=== PATIENT | female | born 1950 | race Caucasian/White ===

== ENCOUNTER 2020-03-20 11:29 | Inpatient (IN) | payer MEDICARE, MEDICAID ==
[~2020-03-20] VITALS: Ht 162.6 cm; Wt 81.8 kg
[2020-03-20] MEDS ORDERED: NS 1,000 ML IV SCH (11:43)
[2020-03-20 12:01] LABS: BASO % 0.3 % (0.0-1.0); EOS % 0.4 % (0.0-3.0); HEMATOCRIT 41.9 % (36.0-47.0); HEMOGLOBIN 13.7 g/dl (12.0-15.5); LYMPH # 0.7 10^3/uL (1.5-5.0); LYMPH % 8.5 % (24.0-44.0); MEAN CORPUSCULAR HEMOGLOBIN 28.3 pg (27.0-33.0); MEAN CORPUSCULAR HGB CONC 32.7 g/dl (32.0-36.5); MEAN CORPUSCULAR VOLUME 86.6 fl (80.0-96.0); MONO # 0.6 10^3/uL (0.0-0.8); MONO % 7.2 % (0.0-5.0); NEUTROPHILS # 6.4 10^3/uL (1.5-8.5); NEUTROPHILS % 82.8 % (36.0-66.0); PLATELET COUNT, AUTOMATED 237 10^3/uL (150-450); RED BLOOD COUNT 4.84 10^6/uL (4.00-5.40); WHITE BLOOD COUNT 7.7 10^3/uL (4.0-10.0)
[2020-03-20 12:23] LABS: ALBUMIN 2.8 GM/DL (3.2-5.2); BILIRUBIN,DIRECT 0.3 MG/DL (0.0-0.2); BILIRUBIN,TOTAL 0.8 MG/DL (0.2-1.0); TOTAL PROTEIN 6.3 GM/DL (6.4-8.2)
--- NOTE | 2020-03-20 13:31 | REP ---
REASON: Right upper quadrant pain. COMPARISON EXAM: None. The examination is markedly limited. The patient was unable to sustain respirations throughout the exam. Seen in the region of the gallbladder fossa, there is a large echogenic focus, which casts an acoustic shadow which suggests cholelithiasis; however, the gallbladder wall is not well imaged and the reason for this is unknown. There might be pericholecystic edema. I can not rule out a liver mass adjacent to the gallbladder fossa obscuring the gallbladder. Limited evaluation of the liver shows a markedly heterogenous echopattern with a nodular-appearing surface. There is no gross intrahepatic or extrahepatic ductal dilation. The common bile duct measures 7 mm. Seen in the imaged portion of the right kidney a 2.3 x 2.5 x 1.8 cm sized anechoic structure is noted which posterior wall enhancement and increased through transmission. This is consistent with a simple cyst. The pancreas was not imaged due to the exam limitations, as described above. There is no free fluid in the abdomen. IMPRESSION: 1. The examination is markedly limited. There is evidence of cholelithiasis and other gallbladder or potentially paragallbladder abnormality. Contrast-enhanced CT examination of the abdomen and pelvis is recommended. 2. Other findings as described above. Electronically Signed by Nicholas Delatorre DO 03/20/2020 01:39 P
[2020-03-20] MEDS ORDERED: ISOVUE-370 76% 100ML VIAL As Ordered ONE (13:57)
[2020-03-20] MEDS ORDERED: ACETAMINOPHEN TAB 650MG DOSE (2X325MG) PO ONE (14:30)
[2020-03-20] MEDS ORDERED: MORPHINE 4 MG/ML 1ML VIAL/SYRINGE (J2270) IV PRN (15:15)
--- NOTE | 2020-03-20 15:30 | REP ---
CT ABDOMEN AND PELVIS WITH IV CONTRAST: TECHNIQUE: Axial contrast enhanced images from the lung bases to the pubic symphysis using 100 mL Isovue 370 intravenous contrast material with multiplanar reformations. Visualized lung bases demonstrate interstitial fibrosis. The liver demonstrates a heterogeneous low density ill-defined mass inferiorly in the right lobe measuring about 6 cm in diameter. Margins are not well defined. There are multiple surrounding subcentimeter nodules in the surrounding right lobe of the liver with multiple subcentimeter nodules extending more superiorly in the right lobe anterior segment. A few subcentimeter nodules are scattered in the left lobe. The gallbladder is moderately distended and contains a 3 cm stone. I suspect that the liver mass is compressing the cystic duct and blocking the cystic duct causing the gallbladder distention. The extrahepatic common bile duct does not appear to be dilated. Spleen is normal in size with no intrinsic abnormality. Adrenal glands and pancreas are unremarkable. The kidneys demonstrate no hydronephrosis. There is a right renal cyst measuring 2.7 cm in diameter. There is mild atherosclerotic calcification of the abdominal aorta without aneurysm. There is no adenopathy in the periaortic region but there is mild portal adenopathy with multiple mildly enlarged lymph nodes present. There is no free air or free fluid. There is a small hiatal hernia. There is sigmoid diverticulosis. There is no acute diverticulitis. Urinary bladder is mildly distended and grossly unremarkable. IMPRESSION: There appears to be a large mass in the inferior aspect of the right lobe of the liver, ill-defined with multiple surrounding subcentimeter nodules in the surrounding liver parenchyma. These extend superiorly in the anterior segment of the right lobe. A few other scattered subcentimeter nodules are seen in the left lobe. I suspect this represents neoplastic disease and possibly cholangiocarcinoma. Just inferior to the mass in the inferior aspect of the right lobe of the liver, the gallbladder demonstrates moderate distention with diffuse wall thickening and contains a 3 cm stone. I suspect the liver mass is obstructing the cystic duct. The extrahepatic common bile duct does not appear to be dilated. There is mild portal adenopathy. Electronically Signed by Patrick Martinez MD 03/20/2020 05:03 P
[2020-03-20] MEDS ORDERED: PROHANCE 279.3MG/ML 5ML VIAL As Ordered ONE (17:16)
[2020-03-20] MEDS ORDERED: PROHANCE 279.3MG/ML 15ML VIAL As Ordered ONE (17:16)
--- NOTE | 2020-03-20 17:19 | HPEPDOC ---
[facility] Medical History & Physical Date of Admission Mar 20, 2020 Date of Service: Mar 20, 2020 Attending Physician: Gail Lombardi MD History and Physical CHIEF COMPLAINT: Abdominal pain HISTORY OF PRESENT ILLNESS: Patient is a 69 y/o F with PMH of COPD who presented to [facility] with chief complaint of worsening abdominal pain over the past 3 days. As per patient, her RUQ pain is localized, intermittent, sharp and has been present for the past 1 year. Over the past 3 days; however, the pain has become severe, 8-10/10 on pain scale. No relieving factors. Worsened with movement. Associated symptoms include lack of energy, n/v, decreased appetite, 2 bouts of loose stools, nonbloody. Due to worsening pain she decided to come to ER. In the ER, pain was described as mod-severe. VS showed BP 119-162/57-72, 66, temp 98F, RR 18, 98% on RA. CT abd/pelvis showed large mass in the inferior aspect of the right lobe of the liver, ill-defined with multiple surrounding subcentimeter nodules in the surrounding liver parenchyma, with other scattered nodules in the right and left lobe. Findings suspicious of neoplastic disease and possibly cholangiocarcinoma. Just inferior to the mass in the inferior aspect of the right lobe of the liver, the gallbladder demonstrates moderate distention with diffuse wall thickening and contains a 3 cm stone- suspicious for compression by mass of the cystic duct but not obstruction. Dr. Nogueira, general surgeon, saw patient in ER and did not feel gallbladder was cause of pain but suspected mass as cause. No surgical intervention needed by him at this time. GI was notified of case and suggested MRI abd/pelvis. Results are currently pending. Patient was admitted for abdominal pain, liver masses r/o neoplastic process. REVIEW OF SYSTEMS: CONSTITUTIONAL: Denies unexplained weight gain or weight loss, fever, night sweats EYES: Denies eye drainage, eye pain, visual changes, dry/irritated eye EARS, NOSE, MOUTH, THROAT: Denies difficulty hearing, ringing in ears, mouth sores, loose teeth, sore throat, facial numbness or pain NECK: Denies swollen glands CARDIOVASCULAR: Denies irregular heartbeat, racing heart, chest pains, swelling of feet or legs, pain in legs with walking RESPIRATORY: Denies shortness of breath, night sweats, wheezing, sputum production, oxygen at home, coughing up blood, cough lasting > 1 month GASTROINTESTINAL: Denies constipation, bloody stool, heart burn : Denies burning with urination, impotence MUSCULOSKELETAL: Denies joint pain, muscle pain, leg swelling INTEGUMENTARY: Denies rash, itching, new skin lesion, change in existing skin lesion, hair loss or increase, breast changes. NEUROLOGICAL: Denies headaches, dizziness, difficulty walking, numbness or tingling PSYCHIATRIC: Denies depression, anxiety, recurrent bad thoughts, mood swings, hallucinations PAST MEDICAL HISTORY: 1. COPD 2. HTN 3. Tobacco use PAST SURGICAL HISTORY: 1. Total Hysterectomy 2. Cholecystectomy 3. Appendectomy FAMILY HISTORY: Father: Coronary artery disease. at 84 years old Mother: Colon cancer, stomach cancer. at 84 years old SOCIAL HISTORY: Smoker 1 pack per day for the past 44 years. She drinks alcohol 4-5 beers daily, last drink was 4 days ago. She does not have a primary care provider and sees no specialist. She lives with her boyfriend in the local area. She is a full code. ALLERGIES: Please see below. HOME MEDICATIONS: Please see below. PHYSICAL EXAMINATION: CONSTITUTIONAL: No acute distress, resting comfortably, AAO x 3 EYES: PERRLA, EOM intact HENT, MOUTH: Normocephalic, atraumatic, moist mucous membranes, NECK: SUPPLE, no JVD, no lymphadenopathy, no carotid bruit CV: Regular rate and rhythm, S1S2 normal, no murmurs/rubs/gallops RESPIRATORY: Clear to auscultation bilaterally, no rales/rhonchi/wheezes GI: tenderness in the RUQ of abdomen, BS positive in 4 quadrants, soft, nondistended, no rebound or guarding, no organomegaly : Deferred MUSCULOSKELETAL: Normal ROM. No cyanosis, clubbing, swelling, joint deformity, extremity edema INTEGUMENTARY: Intact, no rashes, no lesions, no erythema NEUROLOGIC: Cranial Nerves II-XII are intact, no focal deficits PSYCHIATRIC: Mood and affect are normal LABORATORY DATA: Please see below IMAGING: CT abd/pelvis: There appears to be a large mass in the inferior aspect of the right lobe of the liver, ill-defined with multiple surrounding subcentimeter nodules in the surrounding liver parenchyma. These extend superiorly in the anterior segment of the right lobe. A few other scattered subcentimeter nodules are seen in the left lobe. I suspect this represents neoplastic disease and possibly cholangiocarcinoma. Just inferior to the mass in the inferior aspect of the right lobe of the liver, the gallbladder demonstrates moderate distention with diffuse wall thickening and contains a 3 cm stone. I suspect the liver mass is obstructing the cystic duct. The extrahepatic common bile duct does not appear to be dilated. There is mild portal adenopathy. ASSESSMENT: 69 y/o F admitted under inpatient status for abdominal pain, liver masses r/o neoplastic process. PLAN: 1. Liver masses r/o neoplastic process (cholangiocarcinoma). Hx of daily alcohol use, smoker. Liver masses likely cause of abdominal pain per surgery, not distended gallbladder. F/u MRI with and without contrast. Dr. Gallo (GI) and Dr. Nogueira (general surgery) consulted or have seen patient. Depending on results of MRI will determine course of treatment. Pain control with PO and IV meds. 2. Gallbladder distention. Per Dr. Nogueira (surgery) who saw patient in ER, he thinks this is not surgical at this current time. Diffuse wall thickening and 3 cm stone present. Will continue to monitor for change in abdominal pain or wor sening labs. Suspecting liver mass is obstructing the cystic duct. 3. Elevated LFTs. likely due to obstructing liver mass above. Monitor with daily CMP. Avoid hepatotoxic meds. 4. Dehydration likely 2/2 to decreased PO intake, abdominal pain. Started on gentle IVF hydration,f/u daily labs. 5. COPD. No SOB on RA. Albuterol PRN. 6. Tobacco use. Nicotine patch. 7. Alcohol abuse. No signs of withdrawl, no use of alcohol for past 4-5 days. Thiamine, folate. 8. HTN hx. Stable. Not on home meds. 9. DVT px. Enoxaparin SC daily. DISPOSITION: Currently admitted under inpatient status. Plan is undetermined at this time. GI consulted and will f/u in the AM. Vital Signs Vital Signs Date Time Temp Pulse Resp B/P (MAP) Pulse Ox O2 Delivery O2 Flow Rate FiO2 03/20/20 17:00 58 119/57 (77) 95 Room Air 03/20/20 16:45 16 03/20/20 11:40 98.0 Laboratory Data Labs 24H Laboratory Tests 2 03/20/20 11:55: Immature Granulocyte % (Auto) 0.8, Neutrophils (%) (Auto) 82.8H, Lymphocytes (%) (Auto) 8.5L, Monocytes (%) (Auto) 7.2H, Eosinophils (%) (Auto) 0.4, Basophils (%) (Auto) 0.3, Neutrophils # (Auto) 6.4, Lymphocytes # (Auto) 0.7L, Monocytes # (Auto) 0.6, Eosinophils # (Auto) 0.0, Basophils # (Auto) 0.0, Nucleated Red Blood Cells % (auto) 0.0, Total Bilirubin 0.8, Direct Bilirubin 0.3H, Aspartate Amino Transf (AST/SGOT) 132H, Alanine Aminotransferase (ALT/SGPT) 137H, Alkaline Phosphatase 207H, Total Protein 6.3L, Albumin 2.8L, Albumin/Globulin Ratio 0.80L, Lipase 61L 03/20/20 11:58: POC Glucose (Misc Panel) 118H, POC Sodium (Misc Panel) 132L, POC Potassium (Misc Panel) 4.0, POC Chloride (Misc Panel) 94L, POC Total CO2 (Misc Panel) 28.0H, POC Blood Urea Nitrogen (Misc Panel 9, POC Ionized Calcium (Misc Panel) 4.6, POC Creatinine (Misc Panel) 0.6, POC Hematocrit (Misc Panel) 42.0 CBC/BMP Laboratory Tests 03/20/20 11:55 Home Medications No Active Prescriptions or Reported Meds Allergies Coded Allergies: No Known Allergies (Unverified , 03/20/20) A-FIB/CHADSVASC A-FIB History Current/History of A-Fib/PAF?: No Current PO Anticoag Therapy: No Age/Risk Factor Scoring CHADSVASC: CHADSVASC Response (Comments) Value Age Risk Factor Age 65-74 years old 1 Gender Risk Factor Female 1 Hx of CHF No 0 Hx of HTN Yes 1 Hx of Stroke/TIA/or VTE No 0 Hx of Diabetes No 0 Hx of Vascular Disease No 0 Total 3 Treatment Treatment ordered: Other Other anticoagulant ordered: enoxaparin Current Medications Current Medications Medications (Trade) Dose Ordered Sig/Eriberto Route PRN Reason Start Time Stop Time Status Last Admin Dose Admin Home Med (Med Rec Complete!) ASDIRECTED XX 03/20/20 17:00 03/20/20 16:53 DC Morphine Sulfate (Morphine Sulfate Inj) 4 mg Q30M PRN IV SEVERE PAIN (PS 8-10) 03/20/20 15:15 Sodium Chloride 1,000 ml @ 100 mls/hr Q10H IV 03/20/20 11:43 03/20/20 12:04 Gail Lombardi MD Mar 20, 2020 17:18
[2020-03-20] MEDS ORDERED: traMADol 50 MG TAB PO PRN (17:30)
[2020-03-20] MEDS ORDERED: ALBUTEROL 90 MCG/ACT 8GM HFA INHALER INH PRN (17:30)
--- NOTE | 2020-03-20 18:18 | CR ---
DATE OF CONSULTATION: 03/20/2020 REASON FOR CONSULTATION: Right upper quadrant pain with gallstones and liver mass. HISTORY OF PRESENT ILLNESS: The patient is a 69-year-old woman who presented to the emergency department complaining of right upper quadrant pain. She reports that she had undergone evaluation with a CT scan of the abdomen and pelvis at [facility] about a year ago and was diagnosed with appendicitis and then transferred to [facility] for surgery. She reports that she has had an occasional poking sensation in the right upper quadrant over the last months to perhaps as long as a year. She describes the sensation as if somebody poked her with a finger, which lasts only for a few seconds and then resolves. Over the last few months, she has noticed a little bit more discomfort that has been more persistent. Over the last 3-4 days, she has noticed significant increase in the pain in her right upper quadrant. She had some nausea and vomiting a few days ago. The pain became very severe today, and she presented to the emergency department for evaluation. The patient reports that her appetite has been off. She reports that when she had her CT scan for her appendix a year ago, she was told that she "had a bad gallbladder." She has not had any real serious symptoms until very recently. She does not know if she has lost any weight because she does not weigh herself at home. Because of the pain, she presented to the emergency department for evaluation. She had some laboratory studies done, which showed some mild to moderate elevations of her transaminases and a CT scan of the abdomen and pelvis showed a dilated gallbladder appearing to contain a large stone. There was a large irregular mass in the medial aspect of the right lobe of the liver extending fairly widely superiorly within the parenchyma of the liver. I am now asked to evaluate the patient regarding her pain and this liver mass. ALLERGIES: The patient reports no known drug allergies. MEDICATIONS: The patient reports no regular medications. SURGICAL HISTORY: The patient had undergone her laparoscopic appendectomy approximately a year ago at [facility]. Approximately 30 years ago she underwent a hysterectomy with bilateral salpingo-oophorectomy. MEDICAL HISTORY: The patient reports that she has been told she has the start of some chronic obstructive pulmonary disease (COPD). She denies any significant heart disease, endocrine problems or other major medical problems. SOCIAL HISTORY: The patient reports that she smokes approximately one pack of cigarettes per day. She reports that she will drink probably three to four beers per day. She has a significant other. FAMILY HISTORY: Noncontributory. REVIEW OF SYSTEMS: The patient denies any history of seizure, stroke or transient ischemic attack (TIA). She has no history of chronic severe headaches. She denies any cough, wheezing or sputum production. She has had no chest pain or palpitations. She denies any prior abdominal pain other than as described in the history of present illness. She has never had a colonoscopy but denies any history of chronic constipation, diarrhea or rectal bleeding. She denies dysuria or hematuria. She has no history of deep vein thrombosis (DVT) or pulmonary embolus. She has no significant bone or joint issues. PHYSICAL EXAM: Reveals a pleasant woman appearing her stated age of 69 years. Her most recent vital signs show a pulse of approximately 60, blood pressure of 128/58, and a room air saturation of 96%. Respiratory rate was 16. Skin is warm and dry. Sclerae are anicteric. Mucous membranes are moist. Neck is supple without mass, and she has no cervical bruit. Heart exam shows a regular rate and rhythm without murmur. The lungs are clear to auscultation bilaterally. The abdomen is borderline obese. She has several small scars consistent with her laparoscopy. She has active bowel sounds throughout the abdomen. The abdomen is soft. She does have a fullness in the mid right upper quadrant in the subcostal area with some mild direct tenderness in this area. There is no rebound tenderness. There is no sign of hernia in the abdomen. Extremities are without edema. She has palpable radial pulses bilaterally. Laboratory studies include a CBC which shows a white count of 8, hemoglobin 14, hematocrit 42, and a platelet count of 237,000. Differential count shows 83% neutrophils, 8% lymphocytes and 7% monocytes. Her chemistry profile includes a sodium of 132, potassium 4.0, chloride 94, CO2 of 28, BUN of 9, creatinine 0.6 and a glucose of 118. Her liver profile shows a total bilirubin of 0.8, direct of 0.3, AST 132, ALT 137, alkaline phosphatase of 207. Her total protein is slightly depressed at 6.3 with an albumin of 2.8. Lipase was 61. She had a gallbladder ultrasound obtained, which showed a large echogenic focus suggesting cholelithiasis in the gallbladder fossa. The gallbladder wall was not well imaged. The radiologist reported the study was markedly limited, but there was the potential of a liver mass and a CT scan was recommended. The CT scan was done, and this was interpreted by the radiologist as showing a large mass in the inferior aspect of the right lobe of the liver, which was somewhat ill-defined with multiple surrounding subcentimeter nodules in the surrounding liver parenchyma. The radiologist felt the appearance was suggestive of a neoplastic disease. Gallbladder was moderately distended and contained a 3 cm stone with some wall thickening. The extrahepatic common bile duct did not appear to be dilated. There were some lymph nodes noted in the khang region. We were able to obtain in the emergency department a copy of the report of the CT scan from [facility] from January of 2019. The report indicates that at that time she was noted to have cholelithiasis with a distended gallbladder, but there is no mention of a liver mass at that time. IMPRESSION: 1. Right upper quadrant pain; likely related to liver mass, likely malignant. 2. Cholelithiasis with distended gallbladder. 3. Probable COPD secondary to smoking. RECOMMENDATIONS: At this point, I do not believe the patient's pain is related to her cholelithiasis. I suspect that the liver mass is responsible. There may be some obstruction of her cystic duct, which could contribute certainly to the gallbladder distension and pain. At this point, there is no indication to proceed with any urgent surgery, and I suspect that in the end surgery will not be called for. I do think her liver abnormality is very suspicious for a malignancy. I discussed the patient with Dr. Edward and also spoke with Dr. Gallo of the gastroenterology service. We will order an MRI of the abdomen to evaluate the liver more fully. I have recommended to Dr. Edward that the patient be admitted by the hospitalist service for further management as this is likely to be a nonoperative situation. Dr. Gallo would be happy to see the patient, and he should be consulted when the patient is admitted. She may well require an endoscopic exam, possibly an endoscopic retrograde cholangiopancreatography (ERCP) to see if this would yield diagnostic tissue regarding her liver mass. It may be that a percutaneous biopsy of the liver will be called for. DAPHNE
[2020-03-20] MEDS: NS 1,000 ML IV SCH (18:20)
[2020-03-20 18:40] VITALS: BP 124/59
[2020-03-20] MEDS ORDERED: THIAMINE 100 MG TAB PO ONE (18:45)
[2020-03-20] MEDS ORDERED: NICOTINE 21MG/24HR 1 EA TRANSDERMAL TD ONE (18:45)
--- NOTE | 2020-03-20 19:10 | REPVR ---
PROCEDURE INFORMATION: Exam: MR Abdomen Without and With Contrast; Liver Exam date and time: 03/20/2020 5:41 PM Age: 69 years old Clinical indication: Abnormal findings; Abnormal radiologic finding of the abdomen; Patient HX: Abn CT possible liver mass; Additional info: Liver masses, abdominal pain TECHNIQUE: Imaging protocol: MR Abdomen with and without intravenous contrast. Exam focused on the liver. 3D rendering: MIP and/or 3D reconstructed images were created by the technologist. Contrast material: PROHANCE; Contrast volume: 16 ml; Contrast route: 22G; COMPARISON: GALLBLADDER US 03/20/2020 12:10 PM FINDINGS: Liver: There is a multinodular infiltrating mass involving the right lobe of the liver extending superiorly into the medial segment of the left lobe of the liver demonstrating abnormal T2 signal, restricted diffusion on both the B0 and B 1500 diffusion-weighted imaging and progressive heterogeneous enhancement with several nonenhancing tubular and cystic foci on post-gadolinium images. The mass is resulting and splaying of the right and left branches of the portal vein without portal vein invasion. Findings are consistent with a malignancy. Gallbladder and bile ducts: The gallbladder is grossly hydropic. There is cholelithiasis demonstrated. Also noted is abnormal thickening of the gallbladder wall involving the body and neck of the gallbladder. Findings worrisome for malignancy. Pancreas: Normal. Kidneys and ureters: Simple cyst in the right kidney measure up to 3 cm. No follow-up suggested. Intraperitoneal space: No free fluid. IMPRESSION: 1. The gallbladder is grossly hydropic. There is cholelithiasis demonstrated. Also noted is abnormal thickening of the gallbladder wall involving the body and neck of the gallbladder. See comments below. 2. Abnormal multinodular enhancing hepatic masses as described above. Differential diagnosis including the gallbladder findings is primary gallbladder carcinoma metastatic to the liver and biliary carcinoma with secondary involvement of the gallbladder. Image guided percutaneous biopsy suggested if clinically desired. 3. Simple cyst in the right kidney measure up to 3 cm. No follow-up suggested. COMMENTS: Consistent with the [employer]'s Incidental Findings Committee white paper (J Am Rona Radiol 2018): Any incidental cystic renal lesion classified in this report as too small to characterize or simple appearing is likely a benign cyst. No follow-up imaging is recommended for these lesions per consensus recommendations based on imaging criteria. Electronically signed by: Joao Thurman On 03/20/2020 19:10:32 PM
[2020-03-20 19:12] LABS: INR 1.21
[2020-03-20 19:13] LABS: PARTIAL THROMBOPLASTIN TIME 32.2 SECONDS (25.0-38.4)
[2020-03-20] MEDS ORDERED: DOCUSATE SODIUM 100 MG CAP PO SCH (21:00)
[2020-03-20 22:00] VITALS: BP 126/59
[2020-03-21] MEDS: NS 1,000 ML IV SCH ×2 (00:18→22:06)
[2020-03-21] MEDS: MORPHINE 2 MG/ML 1ML VIAL (J2270) IV PRN ×3 (00:19→12:51)
--- NOTE | 2020-03-21 03:22 | ECGEPIP ---
[facility] - ED Test Date: 2020-03-20 Pat Name: EDWIN MONDRAGON Department: Room: - Gender: Female Lapel Baster: rony : 1950 Requested By: Bita Zambrano Order Number: [id number] Reading MD: Maico Gutierrez Measurements Intervals Rebecca Rate: 64 P: 14 NE: 153 QRS: 4 QRSD: 94 T: 29 QT: 416 QTc: 430 Interpretive Statements SINUS RHYTHM Comparison tracing not on file Electronically Signed on 03-21-2020 3:22:19 EDT by Maico Gutierrez
[2020-03-21 06:00] VITALS: BP 143/71
[2020-03-21 06:50] LABS: BASO % 0.2 % (0.0-1.0); EOS % 0.6 % (0.0-3.0); HEMATOCRIT 37.3 % (36.0-47.0); HEMOGLOBIN 12.1 g/dl (12.0-15.5); LYMPH # 0.6 10^3/uL (1.5-5.0); LYMPH % 8.8 % (24.0-44.0); MEAN CORPUSCULAR HEMOGLOBIN 28.1 pg (27.0-33.0); MEAN CORPUSCULAR HGB CONC 32.4 g/dl (32.0-36.5); MEAN CORPUSCULAR VOLUME 86.5 fl (80.0-96.0); MONO # 0.5 10^3/uL (0.0-0.8); MONO % 8.2 % (0.0-5.0); NEUTROPHILS # 5.2 10^3/uL (1.5-8.5); NEUTROPHILS % 81.4 % (36.0-66.0); PLATELET COUNT, AUTOMATED 214 10^3/uL (150-450); RED BLOOD COUNT 4.31 10^6/uL (4.00-5.40); WHITE BLOOD COUNT 6.3 10^3/uL (4.0-10.0)
[2020-03-21 07:16] LABS: ALBUMIN 2.4 GM/DL (3.2-5.2); ALT/SGPT 131 U/L (12-78); BILIRUBIN,TOTAL 0.8 MG/DL (0.2-1.0); BLOOD UREA NITROGEN 9 MG/DL (7-18); CALCIUM LEVEL 8.5 MG/DL (8.8-10.2); CARBON DIOXIDE LEVEL 24 MEQ/L (21-32); CHLORIDE LEVEL 100 MEQ/L (98-107); CREATININE FOR GFR 0.56 MG/DL (0.55-1.30); GLOMERULAR FILTRATION RATE > 60.0 (>39); GLUCOSE, FASTING 102 MG/DL (70-100); POTASSIUM SERUM 4.1 MEQ/L (3.5-5.1); SODIUM LEVEL 135 MEQ/L (136-145); TOTAL PROTEIN 5.5 GM/DL (6.4-8.2)
[2020-03-21] MEDS ORDERED: ENOXAPARIN 40MG/0.4ML SYRINGE (J1650 PER 10MG) SC SCH (09:00)
[2020-03-21] MEDS ORDERED: FOLIC ACID 1 MG TAB PO ONE (09:00)
[2020-03-21 14:00] VITALS: BP 147/77
--- NOTE | 2020-03-21 14:14 | CR.PDOC ---
General Date of Consultation: Mar 21, 2020 Referring Provider: Gail Lombardi MD Attending Physician: WALTER DONALD MD Consultation Primary physician/ hospitalist: -Dr. Lombardi Reason for consult: -Abdominal pain and abnormal CT scan. HPI: 69-year-old female patient with HTN, COPD , presented to [facility] for worsening abdominal pain or the past few days. Patient had CT abdomen in ER, which showed suspicious mass in the liver, along with distended gallbladder and gallstones and GI was consulted for the same. Patient reports having right upper quadrant pain, intermittent, sharp, moderate to severe in intensity, associated with nausea and vomiting and loss of appetite and some unintentional weight loss ( patient does not weight herself and she cannot quantify). Patient also reports t he abdominal pain worsening with food intake, alleviated by lying on back and staying still and for past few days she is unable to eat. Pertinent negative GI symptoms: Patient denies fever, sick contacts, recent travel, hematemesis, melena or hematochezia. Patient reports regular bowel movements. Review of Systems: GI: as stated above CVS: No chest pain, No palpitations, No leg swelling. RS: No Shortness of breath, No Wheezing, no cough [employer]: No dizziness, No motor weakness, No sensory problems Hematology: No bruising, No gum bleeding, Musculoskeletal: No joint pain, ambulating well. Skin: No rash : No hematuria, No burning sensation of the urine ENT: No ear discharge/ pain, No dysphagia. Eyes: No photophobia. Jaundice Home medications: reviewed. Antithrombotic agents: -None Medical h/o: As above. Surgical h/o: None on abdomen. Social h/o: Alcohol: -. Active use, smoking: Active, smoked 1 pack per day for the past 43 years, IVDA/ drugs: Denies. Family h/o of GI cancers - None Prior Endoscopies: None Prior GI evaluations: -None in [facility] Exam: Vitals: reviewed General: Alert and oriented x 3, Mild to moderate distress from pain. HEENT: NO pallor, no icterus. Normal oropharynx, NO cervical lymph nodes. Chest: symmetric with bilateral clear air entry, CVS: S1, S2 heard, normal, no murmurs . Abdomen: non-distended, no surgical scars, soft, non-tender, no palpable masses, normal bowel sounds heard. Rectal exam: Patient refused / Deferred at this time in view of scheduled colonoscopy. Extremities: no pedal edema, pulses palpable. [employer]: no focal motor or sensory deficits. Moves all extremities Skin: no rash. Labs: reviewed. Imaging: reviewed. 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 Impression: -Worsening right upper quadrant abdominal pain, with imaging showing possible neoplastic process -- needs further evaluation. DDx- Metastatic Gall bladder carcinoma vs Cholangiocarcinoma. Recommendations: - Patient educated about the test results, possible differential diagnoses and All questions answered. - NPO/ Clear liquids for now. - Patient is educated about the diagnotic biopsy - either percutaneous biopsy (p referable give liver tissue as well) or EUS guided FNA ( give scan tissue and is not available at this facility) Addendum: -- Patient MRI findings were reviewed with IR physician who opined that the gall bladder is filled with tumor tissue and no fluid. So patient might not benefit from IG guided cholecystostomy. So patient was recommended liver mass biopsy and to follow up with PCP and If needed oncology appointment. Unfortunately based on the imaging, patient has advanced disease and Patient does not want to do any treatment for the cancer. Patient verbalized understanding of the risks Plan of care discussed with patient and primary team. Patient verbalized understanding and agreed with the plan. Vital Signs/I&O Vital Signs Date Time Temp Pulse Resp B/P (MAP) Pulse Ox O2 Delivery O2 Flow Rate FiO2 03/21/20 12:51 17 Room Air 03/21/20 06:00 99.2 67 143/71 (95) 93 I&O- Last 24 Hours up to 6 AM 03/21/20 05:59 Intake Total 1340 ml Output Total 800 ml Balance 540 ml Laboratory Data Labs 24H Laboratory Tests 2 03/20/20 18:46: Prothrombin Time 15.0H, Prothromb Time International Ratio 1.21, Activated Partial Thromboplast Time 32.2 03/21/20 06:28: Immature Granulocyte % (Auto) 0.8, Neutrophils (%) (Auto) 81.4H, Lymphocytes (%) (Auto) 8.8L, Monocytes (%) (Auto) 8.2H, Eosinophils (%) (Auto) 0.6, Basophils (%) (Auto) 0.2, Neutrophils # (Auto) 5.2, Lymphocytes # (Auto) 0.6L, Monocytes # (Auto) 0.5, Eosinophils # (Auto) 0.0, Basophils # (Auto) 0.0, Nucleated Red Blood Cells % (auto) 0.0, Anion Gap 11, Glomerular Filtration Rate > 60.0, Calcium Level 8.5L, Total Bilirubin 0.8, Aspartate Amino Transf (AST/SGOT) 124H, Alanine Aminotransferase (ALT/SGPT) 131H, Alkaline Phosphatase 215H, Total Protein 5.5L, Albumin 2.4L, Albumin/Globulin Ratio 0.77L CBC/BMP Laboratory Tests 03/21/20 06:28 Allergies Coded Allergies: No Known Allergies (Unverified , 03/20/20) Home Medications Scheduled PRN Tramadol HCl (Tramadol HCl) 50 Mg Tablet, 50 MG PO Q6HP PRN for MODERATE PAIN (PS 5-7) for 10 Days, #40 WALTER DONALD MD Mar 21, 2020 14:14
[2020-03-21] MEDS ORDERED: ONDANSETRON 4MG/2ML VIAL IV PRN (20:45)
--- NOTE | 2020-03-21 21:52 | IPNPDOC ---
Date Seen The patient was seen on 03/21/20. Progress Note SUBJECTIVE: Pain similar to 03/20/20. Discussed case with GI and IR, will likely have bx of gallbladder and liver 03/22/20. IR to discuss with GI about possible cholecystostomy drain. If this neoplasm, patient does not wish to have chemo or radiation but be comfortable. She denies chest pain, n/v/d. NPO after midnight. OBJECTIVE: VITAL SIGNS: Please see below PHYSICAL EXAMINATION: CONSTITUTIONAL: No acute distress, resting comfortably, AAO x 3 EYES: PERRLA, EOM intact HENT, MOUTH: Normocephalic, atraumatic, moist mucous membranes, NECK: SUPPLE, no JVD, no lymphadenopathy, no carotid bruit CV: Regular rate and rhythm, S1S2 normal, no murmurs/rubs/gallops RESPIRATORY: Clear to auscultation bilaterally, no rales/rhonchi/wheezes GI: tenderness in the RUQ of abdomen, BS positive in 4 quadrants, soft, nondistended, no rebound or guarding, no organomegaly : Deferred MUSCULOSKELETAL: Normal ROM. No cyanosis, clubbing, swelling, joint deformity, extremity edema INTEGUMENTARY: Intact, no rashes, no lesions, no erythema NEUROLOGIC: Cranial Nerves II-XII are intact, no focal deficits PSYCHIATRIC: Mood and affect are normal LABORATORY DATA: Please see below IMAGING: MRI abd: 1. The gallbladder is grossly hydropic. There is cholelithiasis demonstrated. Also noted is abnormal thickening of the gallbladder wall involving the body and neck of the gallbladder. See comments below. 2. Abnormal multinodular enhancing hepatic masses as described above. Differential diagnosis including the gallbladder findings is primary gallbladder carcinoma metastatic to the liver and biliary carcinoma with secondary involvement of the gallbladder. Image guided percutaneous biopsy suggested if clinically desired. 3. Simple cyst in the right kidney measure up to 3 cm. No follow-up suggested. ASSESSMENT: 69 y/o F admitted under inpatient status for abdominal pain, liver masses r/o neoplastic process. PLAN: 1. Liver masses r/o neoplastic process (DDx- Metastatic Gall bladder carcinoma vs Cholangiocarcinoma). Hx of daily alcohol use, smoker. MRI above. Liver and gallbladder bx to be done, possible cholecystostomy tube placement. IR and GI discussed case. Patient wishes to know diagnosis, options. Pain control with PO and IV meds. 2. Gallbladder distention. Diffuse wall thickening and 3 cm stone present likely 2/2 to problem #2. C/w plan above. 3. Elevated LFTs. likely due to obstructing liver mass above. Slightly improved today. Monitor with daily CMP. Avoid hepatotoxic meds. 4. Dehydration likely 2/2 to decreased PO intake, abdominal pain. C/w gentle IVF hydration, f/u daily labs. 5. COPD. No SOB on RA. Albuterol PRN. 6. Tobacco use. Nicotine patch. 7. Alcohol abuse. No signs of withdrawl, no use of alcohol for past 4-5 days. Thiamine, folate. 8. HTN hx. Stable. Not on home meds. 9. DVT px. Enoxaparin held, SCDs ordered DISPOSITION: Currently admitted under inpatient status. Biopsies and possible drainage tube placement tomorrow. NPO after midnight. Discussed case at length with multiple specialists and patient today. Plan is discharge home when evaluation complete. VS, I&O, 24H, Fishbone Vital Signs/I&O Vital Signs Date Time Temp Pulse Resp B/P (MAP) Pulse Ox O2 Delivery O2 Flow Rate FiO2 03/21/20 14:00 96.9 69 16 147/77 (100) 92 Room Air I&O- Last 24 Hours up to 6 AM 03/21/20 06:00 Intake Total 1840 ml Output Total 800 ml Balance 1040 ml Laboratory Data 24H LABS Laboratory Tests 2 03/21/20 06:28: Immature Granulocyte % (Auto) 0.8, Neutrophils (%) (Auto) 81.4H, Lymphocytes (%) (Auto) 8.8L, Monocytes (%) (Auto) 8.2H, Eosinophils (%) (Auto) 0.6, Basophils (%) (Auto) 0.2, Neutrophils # (Auto) 5.2, Lymphocytes # (Auto) 0.6L, Monocytes # (Auto) 0.5, Eosinophils # (Auto) 0.0, Basophils # (Auto) 0.0, Nucleated Red Blood Cells % (auto) 0.0, Anion Gap 11, Glomerular Filtration Rate > 60.0, Calcium Level 8.5L, Total Bilirubin 0.8, Aspartate Amino Transf (AST/SGOT) 124H, Alanine Aminotransferase (ALT/SGPT) 131H, Alkaline Phosphatase 215H, Total Protein 5.5L, Albumin 2.4L, Albumin/Globulin Ratio 0.77L CBC/BMP Laboratory Tests 03/21/20 06:28 Current Medications Current Medications Medications (Trade) Dose Ordered Sig/Eriberto Route PRN Reason Start Time Stop Time Status Last Admin Dose Admin Albuterol Sulfate (Proventil, Ventolin Hfa) 2 puff Q6HP PRN INH SOB/WHEEZING 03/20/20 17:30 Docusate Sodium (Colace) 100 mg BID PO 03/20/20 21:00 03/20/20 17:50 DC Enoxaparin Sodium (Lovenox) 40 mg DAILY SC 03/21/20 09:00 03/21/20 21:00 DC Home Med (Med Rec Complete!) ASDIRECTED XX 03/20/20 17:00 03/20/20 16:53 DC Morphine Sulfate (Morphine Sulfate Inj) 1 mg Q6HP PRN IV SEVERE PAIN (PS 8-10) 03/20/20 17:30 03/21/20 12:51 Morphine Sulfate (Morphine Sulfate Inj) 4 mg Q30M PRN IV SEVERE PAIN (PS 8-10) 03/20/20 15:15 03/20/20 17:56 DC Ondansetron HCl (ZOFRAN INJection) 4 mg Q6HP PRN IV NAUSEA OR VOMITING 03/21/20 20:45 Sodium Chloride 1,000 ml @ 80 mls/hr [id number] IV 03/20/20 17:30 03/21/20 00:18 Sodium Chloride 1,000 ml @ 100 mls/hr Q10H IV 03/20/20 11:43 03/20/20 17:56 DC 03/20/20 12:04 Tramadol HCl (Ultram) 50 mg Q6HP PRN PO MODERATE PAIN (PS 5-7) 03/20/20 17:30 03/20/20 20:37 Allergies Coded Allergies: No Known Allergies (Unverified , 03/20/20) Gail Lombardi MD Mar 21, 2020 21:52
[2020-03-21 22:00] VITALS: BP 164/85
[2020-03-22 02:24] VITALS: BP 139/67
[2020-03-22 06:00] VITALS: BP 151/70
[2020-03-22 06:44] LABS: BASO % 0.1 % (0.0-1.0); EOS % 0.3 % (0.0-3.0); HEMOGLOBIN 11.8 g/dl (12.0-15.5); LYMPH # 0.6 10^3/uL (1.5-5.0); MEAN CORPUSCULAR HEMOGLOBIN 27.3 pg (27.0-33.0); MEAN CORPUSCULAR HGB CONC 31.9 g/dl (32.0-36.5); MEAN CORPUSCULAR VOLUME 85.5 fl (80.0-96.0); MONO # 0.6 10^3/uL (0.0-0.8); MONO % 8.5 % (0.0-5.0); NEUTROPHILS # 5.8 10^3/uL (1.5-8.5); NEUTROPHILS % 82.2 % (36.0-66.0); PLATELET COUNT, AUTOMATED 203 10^3/uL (150-450); RED BLOOD COUNT 4.33 10^6/uL (4.00-5.40)
[2020-03-22 07:12] LABS: ALBUMIN 2.2 GM/DL (3.2-5.2); ALT/SGPT 96 U/L (12-78); BLOOD UREA NITROGEN 7 MG/DL (7-18); CALCIUM LEVEL 8.7 MG/DL (8.8-10.2); CARBON DIOXIDE LEVEL 25 MEQ/L (21-32); CHLORIDE LEVEL 99 MEQ/L (98-107); CREATININE FOR GFR 0.54 MG/DL (0.55-1.30); GLOMERULAR FILTRATION RATE > 60.0 (>39); GLUCOSE, FASTING 108 MG/DL (70-100); POTASSIUM SERUM 3.8 MEQ/L (3.5-5.1); SODIUM LEVEL 132 MEQ/L (136-145); TOTAL PROTEIN 6.1 GM/DL (6.4-8.2)
[2020-03-22] MEDS: MORPHINE 2 MG/ML 1ML VIAL (J2270) IV PRN ×2 (09:03→20:44)
[2020-03-22] MEDS: NS 1,000 ML IV SCH ×2 (10:31→20:40)
[2020-03-22 14:00] VITALS: BP 171/76
[2020-03-22] MEDS ORDERED: LIDOCAINE 1% MDV 20ML VIAL As Ordered ONE (15:37)
--- NOTE | 2020-03-22 16:34 | IPNPDOC ---
Date Seen The patient was seen on 03/22/20. Progress Note SUBJECTIVE: Pain similar to 03/20/20. Discussed case with GI and IR again today. No stent or drain will be placed at this time. Biopsy of liver scheduled for today. She denies chest pain, n/v/d. OBJECTIVE: VITAL SIGNS: Please see below PHYSICAL EXAMINATION: CONSTITUTIONAL: No acute distress, resting comfortably, AAO x 3 EYES: PERRLA, EOM intact HENT, MOUTH: Normocephalic, atraumatic, moist mucous membranes, NECK: SUPPLE, no JVD, no lymphadenopathy, no carotid bruit CV: Regular rate and rhythm, S1S2 normal, no murmurs/rubs/gallops RESPIRATORY: Clear to auscultation bilaterally, no rales/rhonchi/wheezes GI: tenderness in the RUQ of abdomen, BS positive in 4 quadrants, soft, nond istended, no rebound or guarding, no organomegaly : Deferred MUSCULOSKELETAL: Normal ROM. No cyanosis, clubbing, swelling, joint deformity, extremity edema INTEGUMENTARY: Intact, no rashes, no lesions, no erythema NEUROLOGIC: Cranial Nerves II-XII are intact, no focal deficits PSYCHIATRIC: Mood and affect are normal LABORATORY DATA: Please see below IMAGING: No new imaging. ASSESSMENT: 69 y/o F admitted under inpatient status for abdominal pain, liver masses r/o neoplastic process. PLAN: 1. Liver masses r/o neoplastic process (DDx- Metastatic Gall bladder carcinoma v s Cholangiocarcinoma). Hx of daily alcohol use, smoker. Liver bx to be done today. Patient wishes to know diagnosis, options. Pain control with PO and IV meds. 2. Gallbladder distention/infiltration. Likely due to liver mass/metastasis above. C/w plan above. 3. Elevated LFTs. Improving and likely due to obstructing liver mass above. Slightly improved today. Monitor with daily CMP. Avoid hepatotoxic meds. 4. Dehydration likely 2/2 to decreased PO intake, abdominal pain. C/w gentle IVF hydration, f/u daily labs. 5. COPD. No SOB on RA. Albuterol PRN. 6. Tobacco use. Nicotine patch. 7. Alcohol abuse. No signs of withdrawl. Thiamine, folate. 8. HTN hx. Stable. Not on home meds. 9. DVT px. Enoxaparin held, SCDs ordered DISPOSITION: Currently admitted under inpatient status. Biopsy today. Discussed case at length with multiple specialists and patient today. Plan is discharge home when evaluation complete. VS, I&O, 24H, Fishbone Vital Signs/I&O Vital Signs Date Time Temp Pulse Resp B/P (MAP) Pulse Ox O2 Delivery O2 Flow Rate FiO2 03/22/20 16:24 72 20 93 Room Air 03/22/20 15:15 99.1 03/22/20 14:00 171/76 (107) I&O- Last 24 Hours up to 6 AM 03/22/20 06:00 Intake Total 960 ml Output Total 1000 ml Balance -40 ml Laboratory Data 24H LABS Laboratory Tests 2 03/22/20 06:31: Immature Granulocyte % (Auto) 0.9, Neutrophils (%) (Auto) 82.2H, Lymphocytes (%) (Auto) 8.0L, Monocytes (%) (Auto) 8.5H, Eosinophils (%) (Auto) 0.3, Basophils (%) (Auto) 0.1, Neutrophils # (Auto) 5.8, Lymphocytes # (Auto) 0.6L, Monocytes # (Auto) 0.6, Eosinophils # (Auto) 0.0, Basophils # (Auto) 0.0, Nucleated Red Blood Cells % (auto) 0.0, Activated Partial Thromboplast Time 32.1, Anion Gap 8, Glomerular Filtration Rate > 60.0, Calcium Level 8.7L, Total Bilirubin 1.0, Aspartate Amino Transf (AST/SGOT) 78H, Alanine Aminotransferase (ALT/SGPT) 96H, Alkaline Phosphatase 186H, Total Protein 6.1L, Albumin 2.2L, Albumin/Globulin Ratio 0.56L CBC/BMP Laboratory Tests 03/22/20 06:31 Current Medications Current Medications Medications (Trade) Dose Ordered Sig/Eriberto Route PRN Reason Start Time Stop Time Status Last Admin Dose Admin Albuterol Sulfate (Proventil, Ventolin Hfa) 2 puff Q6HP PRN INH SOB/WHEEZING 03/20/20 17:30 Docusate Sodium (Colace) 100 mg BID PO 03/20/20 21:00 03/20/20 17:50 DC Enoxaparin Sodium (Lovenox) 40 mg DAILY SC 03/21/20 09:00 03/21/20 21:00 DC Home Med (Med Rec Complete!) ASDIRECTED XX 03/20/20 17:00 03/20/20 16:53 DC Morphine Sulfate (Morphine Sulfate Inj) 1 mg Q6HP PRN IV SEVERE PAIN (PS 8-10) 03/20/20 17:30 03/22/20 09:03 Morphine Sulfate (Morphine Sulfate Inj) 4 mg Q30M PRN IV SEVERE PAIN (PS 8-10) 03/20/20 15:15 03/20/20 17:56 DC Ondansetron HCl (ZOFRAN INJection) 4 mg Q6HP PRN IV NAUSEA OR VOMITING 03/21/20 20:45 03/21/20 22:06 Sodium Chloride 1,000 ml @ 100 mls/hr Q10H IV 03/20/20 11:43 03/20/20 17:56 DC 03/20/20 12:04 Sodium Chloride 1,000 ml @ 100 mls/hr Q10H IV 03/20/20 17:30 03/22/20 10:31 Tramadol HCl (Ultram) 50 mg Q6HP PRN PO MODERATE PAIN (PS 5-7) 03/20/20 17:30 03/20/20 20:37 Allergies Coded Allergies: No Known Allergies (Unverified , 03/20/20) Gail Lombardi MD Mar 22, 2020 16:34
[2020-03-22 16:40] VITALS: BP 170/78
[2020-03-22 17:10] VITALS: BP 122/79
[2020-03-22 20:00] VITALS: BP 120/75
[2020-03-23] MEDS: NS 1,000 ML IV SCH (05:50)
[2020-03-23 06:00] VITALS: BP 134/69
[2020-03-23 06:56] LABS: BASO % 0.1 % (0.0-1.0); EOS % 0.3 % (0.0-3.0); HEMATOCRIT 34.7 % (36.0-47.0); HEMOGLOBIN 11.3 g/dl (12.0-15.5); LYMPH # 0.5 10^3/uL (1.5-5.0); LYMPH % 7.3 % (24.0-44.0); MEAN CORPUSCULAR HEMOGLOBIN 27.8 pg (27.0-33.0); MEAN CORPUSCULAR HGB CONC 32.6 g/dl (32.0-36.5); MEAN CORPUSCULAR VOLUME 85.3 fl (80.0-96.0); MONO # 0.6 10^3/uL (0.0-0.8); MONO % 8.3 % (0.0-5.0); NEUTROPHILS # 5.9 10^3/uL (1.5-8.5); NEUTROPHILS % 83.2 % (36.0-66.0); PLATELET COUNT, AUTOMATED 207 10^3/uL (150-450); RED BLOOD COUNT 4.07 10^6/uL (4.00-5.40); WHITE BLOOD COUNT 7.1 10^3/uL (4.0-10.0)
[2020-03-23 07:15] LABS: ALBUMIN 2.1 GM/DL (3.2-5.2); ALT/SGPT 83 U/L (12-78); BILIRUBIN,TOTAL 1.2 MG/DL (0.2-1.0); BLOOD UREA NITROGEN 5 MG/DL (7-18); CALCIUM LEVEL 8.3 MG/DL (8.8-10.2); CARBON DIOXIDE LEVEL 25 MEQ/L (21-32); CHLORIDE LEVEL 99 MEQ/L (98-107); GLOMERULAR FILTRATION RATE > 60.0 (>39); GLUCOSE, FASTING 121 MG/DL (70-100); POTASSIUM SERUM 3.3 MEQ/L (3.5-5.1); SODIUM LEVEL 133 MEQ/L (136-145); TOTAL PROTEIN 5.9 GM/DL (6.4-8.2)
[2020-03-23] MEDS ORDERED: POTASSIUM CHLORIDE 10 MEQ SR TABLET PO ONE (08:00)
[2020-03-23] MEDS ORDERED: TRAM50TA2 PO (09:30)
--- NOTE | 2020-03-23 12:02 | REP ---
ULTRASOUND-GUIDED LIVER BIOPSY The procedure was performed under the direct supervision of Dr. Martinez. The patient has a history of a large mass in the inferior aspect of the right lobe of the liver seen on a previous CT scan dated 03/20/2020. The risks and benefits of the procedure were explained to the patient and informed consent was obtained. The liver mass was localized using ultrasound guidance. The skin was prepped and draped in a sterile fashion. 1% lidocaine was used as a local anesthetic. Using ultrasound guidance a 19/20 gauge coaxial needle biopsy system was inserted and advanced into the mass. Six core biopsy samples were obtained and sent to lab. The patient tolerated the procedure well and there were no immediate complications. After the appropriate amount of monitored convalescence the patient was discharged from the department. Electronically Signed by BARRINGTON Khan 03/22/2020 04:33 P Electronically Signed by Patrick Martinez MD 03/23/2020 11:53 A
--- NOTE | 2020-03-23 13:17 | DS.PDOC ---
Discharge Summary General Date of Admission Mar 20, 2020 at 17:09 Date of Discharge 03/23/20 Attending Physician: Gail Lombardi MD Specialist/Consultants Involve: WALTER GALLO MD Discharge Summary CHIEF COMPLAINT: Abdominal pain HISTORY OF PRESENT ILLNESS: Patient is a 69 y/o F with PMH of COPD who presented to [facility] with chief complaint of worsening abdominal pain over the past 3 days. As per patient, her RUQ pain is localized, intermittent, sharp and has been present for the past 1 year. Over the past 3 days; however, the pain has become severe, 8-10/10 on pain scale. No relieving factors. Worsened with movement. Associated symptoms include lack of energy, n/v, decreased appetite, 2 bouts of loose stools, nonbloody. Due to worsening pain she decided to come to ER. In the ER, pain was described as mod-severe. VS showed BP 119-162/57-72, 66, temp 98F, RR 18, 98% on RA. CT abd/pelvis showed large mass in the inferior aspect of the right lobe of the liver, ill-defined with multiple surrounding subcentimeter nodules in the surrounding liver parenchyma, with other scattered nodules in the right and left lobe. Findings suspicious of neoplastic disease and possibly cholangiocarcinoma. Just inferior to the mass in the inferior aspect of the right lobe of the liver, the gallbladder demonstrates moderate distention with diffuse wall thickening and contains a 3 cm stone- suspicious for compression by mass of the cystic duct but not obstruction. Dr. Nogueira, general surgeon, saw patient in ER and did not feel gallbladder was cause of pain but suspected mass as cause. No surgical intervention needed by him at this time. GI was notified of case and suggested MRI abd/pelvis. Results are currently pending. Patient was admitted for abdominal pain, liver masses r/o neoplastic process. HOSPITAL COURSE: The patient is had MRI abdomen/pelvis done which showed abnormal thickening of the gallbladder wall involving the body and neck of the gallbladder, abnormal multinodular enhancing hepatic masses with differential diagnosis gallbladder carcinoma metastatic to the liver and biliary carcinoma with secondary involvement of the gallbladder. Image guided percutaneous biopsy suggested if clinically desired. Case was discussed with both IR and GI, decision to place stent or drain was decided against. Patient went for US guided liver biopsy on 03/22/20, where 6 biopsies were taken. We talked to the patient several times at length about the possible diagnoses based off of the imaging. The patient made very clear that she did not wish to pursue chemotherapy or radiation if this did heel turner to be cancerous. She states she has seen people of cancer-related therapies and she does not want to be a person who does that way. On 03/23/2020, the patient had no abdominal pain status post biopsy. Her vital signs remained stable and many of her hepatic labs showed improvement. AST/ALT remained elevated; however, this is to be expected with a mass of the size and the liver. The patient will be discharged home today and Dr. Gallo's office is to call her within the next week with the results of the biopsy. She was also given the number to the clinic to follow-up if she doesn't hear from them in that time period. She does not have an established primary care and 30 but she is encouraged to do this. Social work was to see that she received information prior to discharge about options for providers around where she lives. At the time of discharge the patient denied fever, chills, nausea, vomiting, chest pain or shortness of breath. The pain she was experiencing in the right upper quadrant on admission was still present but less in severity, 2 out of 10 on pain scale, dull, localized. REVIEW OF SYSTEMS: CONSTITUTIONAL: Denies unexplained weight gain or weight loss, fever, night sweats EYES: Denies eye drainage, eye pain, visual changes, dry/irritated eye EARS, NOSE, MOUTH, THROAT: Denies difficulty hearing, ringing in ears, mouth sores, loose teeth, sore throat, facial numbness or pain NECK: Denies swollen glands CARDIOVASCULAR: Denies irregular heartbeat, racing heart, chest pains, swelling of feet or legs, pain in legs with walking RESPIRATORY: Denies shortness of breath, night sweats, wheezing, sputum production, oxygen at home, coughing up blood, cough lasting > 1 month GASTROINTESTINAL: Denies constipation, bloody stool, heart burn : Denies burning with urination, impotence MUSCULOSKELETAL: Denies joint pain, muscle pain, leg swelling INTEGUMENTARY: Denies rash, itching, new skin lesion, change in existing skin lesion, hair loss or increase, breast changes. NEUROLOGICAL: Denies headaches, dizziness, difficulty walking, numbness or tingling PSYCHIATRIC: Denies depression, anxiety, recurrent bad thoughts, mood swings, hallucinations PAST MEDICAL HISTORY: 1. COPD 2. HTN 3. Tobacco use PAST SURGICAL HISTORY: 1. Total Hysterectomy 2. Cholecystectomy 3. Appendectomy 4. Liver bx 03/22/20 FAMILY HISTORY: Father: Coronary artery disease. at 84 years old Mother: Colon cancer, stomach cancer. at 84 years old SOCIAL HISTORY: Smoker 1 pack per day for the past 44 years. She drinks alcohol 4-5 beers daily, last drink was 4 days ago. She does not have a primary care provider and sees no specialist. She lives with her boyfriend in the local area. She is a full code. ALLERGIES: Please see below. DISCHARGE MEDICATIONS: Please see below. PHYSICAL EXAMINATION: CONSTITUTIONAL: No acute distress, resting comfortably, AAO x 3 EYES: PERRLA, EOM intact HENT, MOUTH: Normocephalic, atraumatic, moist mucous membranes, NECK: SUPPLE, no JVD, no lymphadenopathy, no carotid bruit CV: Regular rate and rhythm, S1S2 normal, no murmurs/rubs/gallops RESPIRATORY: Clear to auscultation bilaterally, no rales/rhonchi/wheezes GI: tenderness in the RUQ of abdomen, Small pinpoint lesion where biopsies taken in the RUQ, covered in gauze. BS positive in 4 quadrants, soft, nondistended, no rebound or guarding, no organomegaly : Deferred MUSCULOSKELETAL: Normal ROM. No cyanosis, clubbing, swelling, joint deformity, extremity edema INTEGUMENTARY: Intact, no rashes, no lesions, no erythema NEUROLOGIC: Cranial Nerves II-XII are intact, no focal deficits PSYCHIATRIC: Mood and affect are normal LABORATORY DATA: Please see below IMAGING: CT abd/pelvis: There appears to be a large mass in the inferior aspect of the right lobe of the liver, ill-defined with multiple surrounding subcentimeter nodules in the surrounding liver parenchyma. These extend superiorly in the anterior segment of the right lobe. A few other scattered subcentimeter nodules are seen in the left lobe. I suspect this represents neoplastic disease and possibly cholangioca rcinoma. Just inferior to the mass in the inferior aspect of the right lobe of the liver, the gallbladder demonstrates moderate distention with diffuse wall thickening and contains a 3 cm stone. I suspect the liver mass is obstructing the cystic duct. The extrahepatic common bile duct does not appear to be dilated. There is mild portal adenopathy. MRI abd/pelvis: 1. The gallbladder is grossly hydropic. There is cholelithiasis demonstrated. Also noted is abnormal thickening of the gallbladder wall involving the body and neck of the gallbladder. See comments below. 2. Abnormal multinodular enhancing hepatic masses as described above. Differential diagnosis including the gallbladder findings is primary gallbladder carcinoma metastatic to the liver and biliary carcinoma with secondary involvement of the gallbladder. Image guided percutaneous biopsy suggested if clinically desired. 3. Simple cyst in the right kidney measure up to 3 cm. No follow-up suggested. ASSESSMENT: 69 y/o F treated for abdominal pain, liver masses r/o neoplastic process. PLAN: 1. Liver masses r/o neoplastic process (DDx- Metastatic Gall bladder carcinoma vs Cholangiocarcinoma). Hx of daily alcohol use, smoker. S/p liver bx 03/22/20. 6 biopsy samples sent to pathology, will not be done until next week. Dr. Gallo's office to follow up with patient and report results to her. Currently patient does not have an established PCP but will be given information about local providers to choose from. Tramadol PRN for pain control. 2. Gallbladder distention/infiltration. Likely due to liver mass/metastasis above. C/w plan above. 3. Elevated LFTs. Likely due to liver mass above. Improved from admission but will remain high. 4. Dehydration likely 2/2 to decreased PO intake, abdominal pain. Improved. 5. COPD. No SOB on RA. 6. Tobacco use. Tobacco cessation discussed with patient while here. 7. Alcohol abuse. Alcohol cessation discussed with patient. No signs of withdrawl. 8. HTN hx. Stable. DISPOSITION: Discharged home today. Dr. Gallo will call patient to discuss biopsy results when they are in. If she does not hear from them in 1 week, the number to their office was given to her to call. She is advised to establish with a PCP in the community, as her condition will likely worsen. She states she will do so. TIME SPENT ON DISCHARGE: 35 minutes. Vital Signs/I&Os Vital Signs Date Time Temp Pulse Resp B/P (MAP) Pulse Ox O2 Delivery O2 Flow Rate FiO2 03/23/20 06:00 98.0 75 17 134/69 (90) 96 Room Air I&O- Last 24 Hours up to 6 AM 03/23/20 05:59 Intake Total 1960 ml Output Total 1300 ml Balance 660 ml Laboratory Data Labs 24H Laboratory Tests 2 03/23/20 06:25: Immature Granulocyte % (Auto) 0.8, Neutrophils (%) (Auto) 83.2H, Lymphocytes (%) (Auto) 7.3L, Monocytes (%) (Auto) 8.3H, Eosinophils (%) (Auto) 0.3, Basophils (%) (Auto) 0.1, Neutrophils # (Auto) 5.9, Lymphocytes # (Auto) 0.5L, Monocytes # (Auto) 0.6, Eosinophils # (Auto) 0.0, Basophils # (Auto) 0.0, Nucleated Red Blood Cells % (auto) 0.0, Anion Gap 9, Glomerular Filtration Rate > 60.0, Calcium Level 8.3L, Total Bilirubin 1.2H, Aspartate Amino Transf (AST/SGOT) 73H, Alanine Aminotransferase (ALT/SGPT) 83H, Alkaline Phosphatase 194H, Total Protein 5.9L, Albumin 2.1L, Albumin/Globulin Ratio 0.55L CBC/BMP Laboratory Tests 03/23/20 06:25 Discharge Medications Scheduled PRN Tramadol HCl (Tramadol HCl) 50 Mg Tablet, 50 MG PO Q6HP PRN for MODERATE PAIN (PS 5-7) Allergies Coded Allergies: No Known Allergies (Unverified , 03/20/20) Gail Lombardi MD Mar 23, 2020 13:17
== END 2020-03-23 11:53 | disposition home or self-care (01) | DRG 436 ==
LOC: M ED 11:29 → EDBD 11:29 → M ED INP 17:08 → OBSVTOIN 17:09 → ENRESERV 17:30 → M MSPAV 18:50
PROVIDERS: ADMIT Internal Medicine; ATTEND Internal Medicine
PROC: 0F903ZX Drainage of Liver, Percutaneous Approach, Diagnostic (ICD-10-PCS; principal; 2020-03-22 16:00)
DX: C78.7 Secondary malignant neoplasm of liver and intrahepatic bile duct (principal); K82.0 Obstruction of gallbladder; R10.11 Right upper quadrant pain; J44.9 Chronic obstructive pulmonary disease, unspecified; I10 Essential (primary) hypertension; R59.0 Localized enlarged lymph nodes; F10.10 Alcohol abuse, uncomplicated; F17.200 Nicotine dependence, unspecified, uncomplicated; E86.0 Dehydration; Z90.49 Acquired absence of other specified parts of digestive tract